=== PATIENT | female | born 1940 | race Caucasian/White ===

== ENCOUNTER 2018-04-05 17:28 | Inpatient (IN) ==
[2018-04-05 19:10] LABS: Basophils % 0.2 % (0.0-0.8); Hematocrit 40.1 VOL% (35.7-47.0); Hemoglobin 13.4 GM/DL (12.0-16.0); Immature Granulocytes % 0.2 %; Immature Granulocytes Absolute 0.01 #; Lymphocytes # 0.6 10*3/uL (1.4-4.0); Lymphocytes % 13.2 % (21.3-54.2); Mean Corpuscular HGB Conc 33.4 GM/DL (32-36); Mean Corpuscular Hemoglobin 33 PG (27-34); Mean Platelet Volume 12.4 FL (9.6-12.0); Monocytes % 20.8 % (1.7-12.7); Neutrophils % 65.6 % (38.7-73.9); Red Blood Count 4.09 MC/CUMM (3.8-5.5); Red Cell Distribution Width 13.5 % (9.3-17.3); White Blood Count 4.6 T/CUMM (4-12)
[2018-04-05 19:14] LABS: Platelet Count 92 T/CUMM (130-400)
[2018-04-05 19:35] LABS: Calcium 8.4 MG/DL (8.5-10.1); Osmolality,Calculated 279.5 MOS/KG (273-304); Potassium 3.6 MMOL/L (3.5-5.1)
[2018-04-05 19:58] LABS: Band Neutrophils 12 % (0-10); Lymphocytes 6 % (20-55); Platelet Estimate Decreased; Segmented Neutrophils 68 % (50-85); Total Cells Counted 100
[2018-04-05 20:14] LABS: CKMB % 0.7 %
[2018-04-05] MEDS ORDERED: diphenhydrAMINE 50 MG/1 ML VIAL IV STA (20:59)
[2018-04-05] MEDS ORDERED: SODIUM CHLORIDE 0.9% 1,000 ML IV STA (21:07)
[2018-04-05] MEDS ORDERED: diphenhydrAMINE 50 MG/1 ML VIAL ONE (21:09)
[2018-04-06] MEDS ORDERED: MORPHINE 4 MG/1 ML VIAL IV PRN (00:22)
[2018-04-06] MEDS: SODIUM CHLORIDE 0.9% 1,000 ML IV SCH ×5 (00:39→17:30)
[2018-04-06] MEDS: PANTOPRAZOLE 40 MG TABLET PO SCH (08:38)
[2018-04-06 09:03] LABS: Calcium 7.1 MG/DL (8.5-10.1); Potassium 3.6 MMOL/L (3.5-5.1)
[2018-04-06 09:17] LABS: CKMB % 0.3 %
[2018-04-06 13:47] LABS: Apearance,Urine CLOUDY (Clear); Bacteria,Urine Few /HPF (Few); Bilirubin,Urine Negative (Negative); Blood, Urine Negative (Negative); Glucose,Urine (UA) Negative (Negative); Ketones,Urine Negative (Negative); Mucus,Urine Occasional /LPF (Occasional); Nitrite,Urine Negative (Negative); Protein,Urine 30 MG/DL; RBC,Urine 5 /HPF (0-4); Squamous Epithelial Cell,Urine Occasional /HPF (0-10); Urine Color Yellow (Yellow); Urine Specific Gravity 1.029 (1.001-1.035); Urine Urobilinogen < 2.0 EU/DL (0.2-1.0); WBC,Urine 3 /HPF (0-6)
[2018-04-06] MEDS ORDERED: ENOXAPARIN 40 MG/0.4 ML SYRINGE SUBCUT SCH (15:00)
[2018-04-06] MEDS: ONDANSETRON 4 MG/2 ML VIAL IV PRN (16:33)
[2018-04-06] MEDS: ASPIRIN EC 81 MG TABLET PO SCH (18:40)
[2018-04-06] MEDS: ESCITALOPRAM 10 MG TABLET PO SCH (18:40)
[2018-04-06 19:01] LABS: CKMB % 0.3 %
[2018-04-06] MEDS: APIXABAN 5 MG TABLET PO SCH (21:33)
[2018-04-06] MEDS: ZALEPLON 5 MG CAPSULE PO SCH (21:33)
[2018-04-06] MEDS: CARVEDILOL 6.25 MG TABLET PO SCH (21:33)
[2018-04-06] MEDS: PREGABALIN 25 MG CAPSULE PO SCH (22:03)
[2018-04-07] MEDS: SODIUM CHLORIDE 0.9% 1,000 ML IV SCH ×3 (01:20→20:07)
[2018-04-07 02:30] LABS: Basophils % 0.4 % (0.0-0.8); Hematocrit 33.5 VOL% (35.7-47.0); Hemoglobin 11.1 GM/DL (12.0-16.0); Immature Granulocytes % 0.4 %; Immature Granulocytes Absolute 0.01 #; Lymphocytes # 0.4 10*3/uL (1.4-4.0); Lymphocytes % 15.3 % (21.3-54.2); Mean Corpuscular HGB Conc 33.1 GM/DL (32-36); Mean Corpuscular Hemoglobin 33 PG (27-34); Mean Corpuscular Volume 98.8 FL (87-102); Mean Platelet Volume 13.2 FL (9.6-12.0); Monocytes # 0.6 10*3/uL (0.11-0.8); Neutrophils # 1.8 10*3/uL (1.4-7.4); Neutrophils % 63.9 % (38.7-73.9); Platelet Count 74 T/CUMM (130-400); Red Blood Count 3.39 MC/CUMM (3.8-5.5); Red Cell Distribution Width 13.6 % (9.3-17.3); White Blood Count 2.8 T/CUMM (4-12)
[2018-04-07 02:53] LABS: Albumin 2.7 G/DL (3.4-5.0); Bilirubin,Total 0.5 MG/DL (0.2-1.0); Osmolality,Calculated 282.1 MOS/KG (273-304); Potassium 3.5 MMOL/L (3.5-5.1)
[2018-04-07 03:05] LABS: CKMB % 0.2 %
[2018-04-07 03:47] LABS: Band Neutrophils 38 % (0-10); Lymphocytes 12 % (20-55); Segmented Neutrophils 35 % (50-85); Total Cells Counted 100
[2018-04-07] MEDS: PREGABALIN 25 MG CAPSULE PO SCH ×2 (09:32→20:26)
[2018-04-07] MEDS: VALSARTAN 80 MG TABLET PO SCH (09:32)
[2018-04-07] MEDS: APIXABAN 5 MG TABLET PO SCH (09:32)
[2018-04-07] MEDS: CARVEDILOL 6.25 MG TABLET PO SCH ×2 (09:32→20:26)
[2018-04-07] MEDS: PANTOPRAZOLE 40 MG TABLET PO SCH (09:35)
[2018-04-07] MEDS: ONDANSETRON 4 MG/2 ML VIAL IV PRN (10:10)
[2018-04-07] MEDS: HYDROmorphone 2 MG/1 ML VIAL IV PRN ×2 (13:58→20:25)
[2018-04-07] MEDS: ALBUTEROL/IPRATROPIUM 3 ML NEB RESP TX SCH ×2 (13:59→18:55)
[2018-04-07] MEDS: ASPIRIN EC 81 MG TABLET PO SCH (17:59)
[2018-04-07] MEDS: ESCITALOPRAM 10 MG TABLET PO SCH (17:59)
[2018-04-07] MEDS: METHOCARBAMOL 500 MG TABLET PO PRN (20:26)
[2018-04-07] MEDS: ZALEPLON 5 MG CAPSULE PO SCH (20:26)
[2018-04-08] MEDS: SODIUM CHLORIDE 0.9% 1,000 ML IV SCH ×3 (02:25→21:20)
[2018-04-08 04:54] LABS: Basophils % 0.4 % (0.0-0.8); Eosinophils % 0.4 % (0.00-10.9); Hematocrit 35.7 VOL% (35.7-47.0); Hemoglobin 11.4 GM/DL (12.0-16.0); Immature Granulocytes % 0.4 %; Immature Granulocytes Absolute 0.01 #; Lymphocytes # 0.3 10*3/uL (1.4-4.0); Mean Corpuscular HGB Conc 31.9 GM/DL (32-36); Mean Corpuscular Hemoglobin 32 PG (27-34); Mean Corpuscular Volume 99.4 FL (87-102); Mean Platelet Volume 12.4 FL (9.6-12.0); Monocytes # 0.5 10*3/uL (0.11-0.8); Monocytes % 17.5 % (1.7-12.7); Neutrophils # 1.9 10*3/uL (1.4-7.4); Neutrophils % 69.3 % (38.7-73.9); Red Blood Count 3.59 MC/CUMM (3.8-5.5); Red Cell Distribution Width 13.4 % (9.3-17.3); White Blood Count 2.7 T/CUMM (4-12)
[2018-04-08 05:05] LABS: Platelet Count 81 T/CUMM (130-400)
[2018-04-08 05:32] LABS: Alanine Aminotransferase 45 U/L (13-56); Albumin 2.7 G/DL (3.4-5.0); Alkaline Phosphatase 55 U/L (45-117); Aspartate Amino Transferase 102 U/L (0-37); Bilirubin,Total < 0.39 MG/DL (0.2-1.0); Blood Urea Nitrogen 8 MG/DL (7-18); Calcium 7.5 MG/DL (8.5-10.1); Glucose 89 MG/DL (74-106); Osmolality,Calculated 275.4 MOS/KG (273-304); Potassium 3.6 MMOL/L (3.5-5.1); Sodium 140 MMOL/L (136-145); Total Protein 4.9 G/DL (6.4-8.3)
[2018-04-08] MEDS: ONDANSETRON 4 MG/2 ML VIAL IV PRN ×2 (05:35→10:40)
[2018-04-08 05:38] LABS: Hypochromasia Slight; Platelet Estimate Decreased
[2018-04-08] MEDS: ALBUTEROL/IPRATROPIUM 3 ML NEB RESP TX SCH ×4 (07:15→19:36)
[2018-04-08] MEDS: VALSARTAN 80 MG TABLET PO SCH (09:17)
[2018-04-08] MEDS: METHOCARBAMOL 500 MG TABLET PO PRN (09:17)
[2018-04-08] MEDS: PREGABALIN 25 MG CAPSULE PO SCH ×2 (09:17→21:42)
[2018-04-08] MEDS: CARVEDILOL 6.25 MG TABLET PO SCH ×2 (09:18→21:42)
[2018-04-08] MEDS: PANTOPRAZOLE 40 MG TABLET PO SCH (09:19)
[2018-04-08] MEDS: HYDROmorphone 2 MG/1 ML VIAL IV PRN ×3 (10:40→17:49)
[2018-04-08] MEDS ORDERED: ENOXAPARIN 40 MG/0.4 ML SYRINGE SUBCUT SCH (17:30)
[2018-04-08] MEDS: ASPIRIN EC 81 MG TABLET PO SCH (20:11)
[2018-04-08] MEDS: ESCITALOPRAM 10 MG TABLET PO SCH (20:11)
[2018-04-08] MEDS: ZALEPLON 5 MG CAPSULE PO SCH (21:42)
[2018-04-09] MEDS: ALBUTEROL/IPRATROPIUM 3 ML NEB RESP TX SCH ×4 (00:28→19:39)
[2018-04-09] MEDS: ONDANSETRON 4 MG/2 ML VIAL IV PRN ×4 (03:00→22:45)
[2018-04-09 05:20] LABS: Eosinophils % 0.4 % (0.00-10.9); Hematocrit 34.4 VOL% (35.7-47.0); Hemoglobin 11.6 GM/DL (12.0-16.0); Immature Granulocytes % 0.4 %; Immature Granulocytes Absolute 0.01 #; Lymphocytes # 0.4 10*3/uL (1.4-4.0); Lymphocytes % 14.2 % (21.3-54.2); Mean Corpuscular HGB Conc 33.7 GM/DL (32-36); Mean Corpuscular Hemoglobin 33 PG (27-34); Mean Corpuscular Volume 96.6 FL (87-102); Mean Platelet Volume 12.8 FL (9.6-12.0); Monocytes # 0.5 10*3/uL (0.11-0.8); Monocytes % 19.2 % (1.7-12.7); Neutrophils # 1.7 10*3/uL (1.4-7.4); Neutrophils % 65.8 % (38.7-73.9); Platelet Count 87 T/CUMM (130-400); Red Blood Count 3.56 MC/CUMM (3.8-5.5); Red Cell Distribution Width 13.2 % (9.3-17.3); White Blood Count 2.6 T/CUMM (4-12)
[2018-04-09 05:39] LABS: Calcium 7.7 MG/DL (8.5-10.1); Osmolality,Calculated 274.5 MOS/KG (273-304); Potassium 3.6 MMOL/L (3.5-5.1)
[2018-04-09 06:22] LABS: Band Neutrophils 8 % (0-10); Eosinophils 1 % (0-10); Lymphocytes 20 % (20-55); Nucleated Red Blood Cells 1 (0-5); Segmented Neutrophils 53 % (50-85); Total Cells Counted 100
[2018-04-09 06:23] LABS: Hypochromasia Slight; Platelet Estimate Decreased
[2018-04-09] MEDS: CARVEDILOL 6.25 MG TABLET PO SCH ×2 (08:45→21:10)
[2018-04-09] MEDS: PANTOPRAZOLE 40 MG TABLET PO SCH (08:45)
[2018-04-09] MEDS: VALSARTAN 80 MG TABLET PO SCH (08:45)
[2018-04-09] MEDS ORDERED: LORazepam 2 MG/1 ML VIAL IV ONE (09:18)
[2018-04-09] MEDS: PREGABALIN 25 MG CAPSULE PO SCH ×2 (10:01→21:10)
[2018-04-09] MEDS: SODIUM CHLORIDE 0.9% 1,000 ML IV SCH ×2 (12:13→20:00)
[2018-04-09] MEDS: METHOCARBAMOL 500 MG TABLET PO PRN (19:54)
[2018-04-09] MEDS: ESCITALOPRAM 10 MG TABLET PO SCH (21:09)
[2018-04-09] MEDS: ASPIRIN EC 81 MG TABLET PO SCH (21:10)
[2018-04-09] MEDS: ZALEPLON 5 MG CAPSULE PO SCH (21:10)
[2018-04-09] MEDS: oxyCODONE/ACETAMINOPHEN 5-325 MG TABLET PO PRN (22:43)
[2018-04-10] MEDS: ALBUTEROL/IPRATROPIUM 3 ML NEB RESP TX SCH ×4 (00:59→20:00)
[2018-04-10] MEDS: oxyCODONE/ACETAMINOPHEN 5-325 MG TABLET PO PRN (02:42)
[2018-04-10 03:22] LABS: Basophils % 0.2 % (0.0-0.8); Eosinophils % 0.9 % (0.00-10.9); Hematocrit 38.1 VOL% (35.7-47.0); Hemoglobin 12.4 GM/DL (12.0-16.0); Immature Granulocytes % 0.2 %; Immature Granulocytes Absolute 0.01 #; Lymphocytes # 0.8 10*3/uL (1.4-4.0); Lymphocytes % 17.9 % (21.3-54.2); Mean Corpuscular HGB Conc 32.5 GM/DL (32-36); Mean Corpuscular Hemoglobin 32 PG (27-34); Mean Corpuscular Volume 97.2 FL (87-102); Mean Platelet Volume 12.3 FL (9.6-12.0); Monocytes # 0.7 10*3/uL (0.11-0.8); Monocytes % 15.3 % (1.7-12.7); Neutrophils # 2.8 10*3/uL (1.4-7.4); Neutrophils % 65.5 % (38.7-73.9); Platelet Count 107 T/CUMM (130-400); Red Blood Count 3.92 MC/CUMM (3.8-5.5); Red Cell Distribution Width 13.3 % (9.3-17.3); White Blood Count 4.3 T/CUMM (4-12)
[2018-04-10 03:47] LABS: Osmolality,Calculated 281.1 MOS/KG (273-304); Potassium 3.5 MMOL/L (3.5-5.1)
[2018-04-10] MEDS: SODIUM CHLORIDE 0.9% 1,000 ML IV SCH ×2 (04:01→12:19)
[2018-04-10] MEDS ORDERED: DILTIAZEM 100 MG VIAL.ADD IV ONE (04:03)
[2018-04-10 04:05] LABS: Lymphocytes 15 % (20-55); Segmented Neutrophils 75 % (50-85); Total Cells Counted 100
[2018-04-10 04:06] LABS: Platelet Estimate Adequate
[2018-04-10] MEDS: DILTIAZEM INJ 100 MG in SODIUM CHLORIDE 0.9% 100 ML IV SCH (04:17)
[2018-04-10] MEDS ORDERED: DILTIAZEM 50 MG/10 ML VIAL IV ONE (04:30)
[2018-04-10] MEDS: VALSARTAN 80 MG TABLET PO SCH (08:37)
[2018-04-10] MEDS: CARVEDILOL 6.25 MG TABLET PO SCH ×2 (08:37→20:18)
[2018-04-10] MEDS: PANTOPRAZOLE 40 MG TABLET PO SCH (08:39)
[2018-04-10] MEDS: METHOCARBAMOL 500 MG TABLET PO PRN ×2 (08:49→22:13)
[2018-04-10] MEDS: PREGABALIN 25 MG CAPSULE PO SCH ×2 (08:50→20:17)
[2018-04-10] MEDS: ASCORBIC ACID 500 MG TABLET PO SCH ×2 (08:50→20:18)
[2018-04-10] MEDS: FAMOTIDINE 20 MG TABLET PO SCH (10:02)
[2018-04-10] MEDS ORDERED: FUROSEMIDE 40 MG/4 ML VIAL IV ONE (11:19)
[2018-04-10] MEDS: DILTIAZEM CD 180 MG CAPSULE PO SCH (12:10)
[2018-04-10] MEDS: DABIGATRAN 150 MG CAPSULE PO SCH ×2 (12:21→20:18)
[2018-04-10] MEDS: ALUMINUM/MAGNES/SIMETH MAX STR 30 ML UDCUP PO PRN (12:55)
[2018-04-10] MEDS: traMADol 50 MG TABLET PO PRN ×2 (14:56→19:24)
[2018-04-10] MEDS ORDERED: hydrALAZINE 20 MG/1 ML VIAL IV PRN (17:46)
[2018-04-10] MEDS: ASPIRIN EC 81 MG TABLET PO SCH (20:18)
[2018-04-10] MEDS: DOCUSATE SODIUM 100 MG CAPSULE PO SCH (20:18)
[2018-04-10] MEDS: ESCITALOPRAM 10 MG TABLET PO SCH (20:18)
[2018-04-10] MEDS: ZALEPLON 5 MG CAPSULE PO SCH (20:23)
[2018-04-11] MEDS ORDERED: oxyCODONE/ACETAMINOPHEN 5-325 MG TABLET PO ONE (00:30)
[2018-04-11] MEDS: ALBUTEROL/IPRATROPIUM 3 ML NEB RESP TX SCH ×4 (00:40→19:04)
[2018-04-11 05:51] LABS: Basophils % 0.2 % (0.0-0.8); Eosinophils % 0.8 % (0.00-10.9); Hematocrit 35.1 VOL% (35.7-47.0); Hemoglobin 11.9 GM/DL (12.0-16.0); Immature Granulocytes % 0.6 %; Immature Granulocytes Absolute 0.03 #; Lymphocytes # 0.6 10*3/uL (1.4-4.0); Lymphocytes % 12.7 % (21.3-54.2); Mean Corpuscular HGB Conc 33.9 GM/DL (32-36); Mean Corpuscular Hemoglobin 32 PG (27-34); Mean Corpuscular Volume 94.6 FL (87-102); Mean Platelet Volume 12.5 FL (9.6-12.0); Monocytes % 19.7 % (1.7-12.7); Neutrophils # 3.2 10*3/uL (1.4-7.4); Platelet Count 131 T/CUMM (130-400); Red Blood Count 3.71 MC/CUMM (3.8-5.5); Red Cell Distribution Width 13.2 % (9.3-17.3); White Blood Count 4.9 T/CUMM (4-12)
[2018-04-11] MEDS: DILTIAZEM INJ 100 MG in SODIUM CHLORIDE 0.9% 100 ML IV SCH (06:18)
[2018-04-11 06:23] LABS: Calcium 8.1 MG/DL (8.5-10.1); Osmolality,Calculated 276.4 MOS/KG (273-304); Potassium 3.3 MMOL/L (3.5-5.1)
[2018-04-11 06:26] LABS: Band Neutrophils 2 % (0-10); Eosinophils 1 % (0-10); Hypochromasia Slight; Lymphocytes 12 % (20-55); Segmented Neutrophils 65 % (50-85); Total Cells Counted 100
[2018-04-11 06:27] LABS: Platelet Estimate Adequate
[2018-04-11] MEDS: DABIGATRAN 150 MG CAPSULE PO SCH ×2 (08:51→21:09)
[2018-04-11] MEDS: CARVEDILOL 6.25 MG TABLET PO SCH ×2 (08:51→21:10)
[2018-04-11] MEDS: traMADol 50 MG TABLET PO PRN ×3 (08:51→18:49)
[2018-04-11] MEDS: ASCORBIC ACID 500 MG TABLET PO SCH ×2 (08:51→21:09)
[2018-04-11] MEDS: FAMOTIDINE 20 MG TABLET PO SCH (08:51)
[2018-04-11] MEDS: DOCUSATE SODIUM 100 MG CAPSULE PO SCH ×2 (08:51→21:09)
[2018-04-11] MEDS: VALSARTAN 80 MG TABLET PO SCH (08:51)
[2018-04-11] MEDS: PANTOPRAZOLE 40 MG TABLET PO SCH (09:01)
[2018-04-11] MEDS: PREGABALIN 25 MG CAPSULE PO SCH ×2 (09:01→21:10)
[2018-04-11] MEDS: DILTIAZEM CD 180 MG CAPSULE PO SCH ×2 (10:17→13:54)
[2018-04-11] MEDS: POTASSIUM CHLORIDE 20 MEQ TABLET PO PRN ×2 (13:55→18:04)
[2018-04-11] MEDS ORDERED: cloNIDine 0.1 MG TABLET PO PRN (16:57)
[2018-04-11] MEDS: METHOCARBAMOL 500 MG TABLET PO PRN (18:49)
[2018-04-11] MEDS: ZALEPLON 5 MG CAPSULE PO SCH (21:09)
[2018-04-11] MEDS: ESCITALOPRAM 10 MG TABLET PO SCH (21:10)
[2018-04-11] MEDS: ASPIRIN EC 81 MG TABLET PO SCH (21:10)
[2018-04-12] MEDS: ALBUTEROL/IPRATROPIUM 3 ML NEB RESP TX SCH ×4 (01:10→20:45)
[2018-04-12] MEDS: traMADol 50 MG TABLET PO PRN ×3 (03:32→20:33)
[2018-04-12] MEDS: METHOCARBAMOL 500 MG TABLET PO PRN ×2 (03:32→16:35)
[2018-04-12] MEDS: DILTIAZEM INJ 100 MG in SODIUM CHLORIDE 0.9% 100 ML IV SCH (03:40)
[2018-04-12] MEDS: ONDANSETRON 4 MG/2 ML VIAL IV PRN (05:44)
[2018-04-12 05:52] LABS: Basophils % 0.3 % (0.0-0.8); Eosinophils # 0.1 10*3/uL (0.0-0.87); Eosinophils % 0.7 % (0.00-10.9); Hematocrit 36.5 VOL% (35.7-47.0); Hemoglobin 12.2 GM/DL (12.0-16.0); Immature Granulocytes % 0.7 %; Immature Granulocytes Absolute 0.05 #; Lymphocytes # 0.7 10*3/uL (1.4-4.0); Lymphocytes % 9.1 % (21.3-54.2); Mean Corpuscular HGB Conc 33.4 GM/DL (32-36); Mean Corpuscular Hemoglobin 32 PG (27-34); Mean Corpuscular Volume 95.3 FL (87-102); Mean Platelet Volume 11.8 FL (9.6-12.0); Monocytes # 1.2 10*3/uL (0.11-0.8); Monocytes % 16.1 % (1.7-12.7); Neutrophils # 5.6 10*3/uL (1.4-7.4); Neutrophils % 73.1 % (38.7-73.9); Platelet Count 174 T/CUMM (130-400); Red Blood Count 3.83 MC/CUMM (3.8-5.5); Red Cell Distribution Width 13.1 % (9.3-17.3); White Blood Count 7.7 T/CUMM (4-12)
[2018-04-12 06:31] LABS: Osmolality,Calculated 272.7 MOS/KG (273-304); Potassium 3.8 MMOL/L (3.5-5.1)
[2018-04-12 07:22] LABS: Band Neutrophils 3 % (0-10); Lymphocytes 12 % (20-55); Segmented Neutrophils 76 % (50-85); Total Cells Counted 100
[2018-04-12 07:23] LABS: Hypochromasia 1+; Platelet Estimate Adequate; Target Cells Slight
[2018-04-12] MEDS: BISACODYL 10 MG SUPP RECTAL PRN (08:52)
[2018-04-12] MEDS: DABIGATRAN 150 MG CAPSULE PO SCH (08:57)
[2018-04-12] MEDS: DILTIAZEM CD 180 MG CAPSULE PO SCH (08:57)
[2018-04-12] MEDS: FAMOTIDINE 20 MG TABLET PO SCH (08:58)
[2018-04-12] MEDS: DOCUSATE SODIUM 100 MG CAPSULE PO SCH ×2 (08:58→20:34)
[2018-04-12] MEDS: CARVEDILOL 6.25 MG TABLET PO SCH ×2 (08:58→20:36)
[2018-04-12] MEDS: ASCORBIC ACID 500 MG TABLET PO SCH ×2 (08:58→20:34)
[2018-04-12] MEDS: PREGABALIN 25 MG CAPSULE PO SCH ×2 (08:58→20:34)
[2018-04-12] MEDS: VALSARTAN 160 MG TABLET PO SCH (08:58)
[2018-04-12] MEDS: PANTOPRAZOLE 40 MG TABLET PO SCH (09:02)
[2018-04-12] MEDS ORDERED: ALBUTEROL/IPRATROPIUM 3 ML NEB RESP TX ONE (10:58)
[2018-04-12 11:08] LABS: Apearance,Urine CLOUDY (Clear); Bacteria,Urine Many /HPF (Few); Bilirubin,Urine Negative (Negative); Blood, Urine Large mg/dL (Negative); Glucose,Urine (UA) Negative (Negative); Ketones,Urine Negative (Negative); Mucus,Urine Occasional /LPF (Occasional); Nitrite,Urine Negative (Negative); Protein,Urine 100 MG/DL; RBC,Urine 7831 /HPF (0-4); Urine Color Amber (Yellow); Urine Specific Gravity 1.015 (1.001-1.035); WBC,Urine 694 /HPF (0-6)
[2018-04-12] MEDS: ESCITALOPRAM 10 MG TABLET PO SCH (18:20)
[2018-04-12] MEDS: ASPIRIN EC 81 MG TABLET PO SCH (18:20)
[2018-04-12] MEDS: ZALEPLON 5 MG CAPSULE PO SCH (20:34)
[2018-04-13] MEDS: ALBUTEROL/IPRATROPIUM 3 ML NEB RESP TX SCH ×4 (01:04→19:53)
[2018-04-13] MEDS: METHOCARBAMOL 500 MG TABLET PO PRN ×3 (03:27→20:37)
[2018-04-13 03:31] LABS: Basophils % 0.2 % (0.0-0.8); Eosinophils # 0.1 10*3/uL (0.0-0.87); Eosinophils % 1.2 % (0.00-10.9); Hematocrit 34.9 VOL% (35.7-47.0); Hemoglobin 11.6 GM/DL (12.0-16.0); Immature Granulocytes % 0.9 %; Immature Granulocytes Absolute 0.07 #; Lymphocytes # 0.8 10*3/uL (1.4-4.0); Lymphocytes % 10.1 % (21.3-54.2); Mean Corpuscular HGB Conc 33.2 GM/DL (32-36); Mean Corpuscular Hemoglobin 32 PG (27-34); Mean Corpuscular Volume 95.1 FL (87-102); Mean Platelet Volume 12.1 FL (9.6-12.0); Monocytes # 1.4 10*3/uL (0.11-0.8); Monocytes % 17.1 % (1.7-12.7); Neutrophils # 5.8 10*3/uL (1.4-7.4); Neutrophils % 70.5 % (38.7-73.9); Platelet Count 200 T/CUMM (130-400); Red Blood Count 3.67 MC/CUMM (3.8-5.5); Red Cell Distribution Width 13.2 % (9.3-17.3); White Blood Count 8.2 T/CUMM (4-12)
[2018-04-13 03:52] LABS: Calcium 8.4 MG/DL (8.5-10.1); Osmolality,Calculated 272.7 MOS/KG (273-304); Potassium 3.4 MMOL/L (3.5-5.1)
[2018-04-13 04:00] LABS: Lymphocytes 6 % (20-55); Segmented Neutrophils 84 % (50-85)
[2018-04-13 04:23] LABS: Platelet Estimate Normal; Total Cells Counted 100
[2018-04-13] MEDS: traMADol 50 MG TABLET PO PRN ×3 (06:10→22:49)
[2018-04-13] MEDS: FAMOTIDINE 20 MG TABLET PO SCH (08:45)
[2018-04-13] MEDS: VALSARTAN 160 MG TABLET PO SCH (08:45)
[2018-04-13] MEDS: PREGABALIN 25 MG CAPSULE PO SCH ×2 (08:45→20:37)
[2018-04-13] MEDS: ASCORBIC ACID 500 MG TABLET PO SCH ×2 (08:45→20:37)
[2018-04-13] MEDS: POTASSIUM CHLORIDE 20 MEQ TABLET PO PRN ×4 (08:45→22:48)
[2018-04-13] MEDS: DOCUSATE SODIUM 100 MG CAPSULE PO SCH ×2 (08:45→20:37)
[2018-04-13] MEDS: DILTIAZEM CD 180 MG CAPSULE PO SCH (08:45)
[2018-04-13] MEDS: PANTOPRAZOLE 40 MG TABLET PO SCH (08:45)
[2018-04-13] MEDS: CARVEDILOL 6.25 MG TABLET PO SCH ×2 (08:46→20:45)
[2018-04-13] MEDS: NITROFURANTOIN MACRO/MONO 100 MG CAPSULE PO SCH ×2 (11:44→20:45)
[2018-04-13] MEDS: ALUMINUM/MAGNES/SIMETH MAX STR 30 ML UDCUP PO PRN ×2 (14:02→14:06)
[2018-04-13] MEDS: DEXTROSE 5% NACL 0.45% 1,000 ML IV SCH (14:03)
[2018-04-13] MEDS: ASPIRIN EC 81 MG TABLET PO SCH (18:03)
[2018-04-13] MEDS: ESCITALOPRAM 10 MG TABLET PO SCH (18:03)
[2018-04-13] MEDS: ZALEPLON 5 MG CAPSULE PO PRN (20:13)
[2018-04-13] MEDS ORDERED: ZALEPLON 5 MG CAPSULE PO PRN (21:00)
[2018-04-14] MEDS: ALBUTEROL/IPRATROPIUM 3 ML NEB RESP TX SCH ×4 (00:50→19:50)
[2018-04-14] MEDS: DEXTROSE 5% NACL 0.45% 1,000 ML IV SCH (03:30)
[2018-04-14] MEDS: METHOCARBAMOL 500 MG TABLET PO PRN ×2 (06:08→13:49)
[2018-04-14] MEDS: traMADol 50 MG TABLET PO PRN (07:12)
[2018-04-14] MEDS: DILTIAZEM CD 180 MG CAPSULE PO SCH (08:33)
[2018-04-14] MEDS: VALSARTAN 160 MG TABLET PO SCH (08:33)
[2018-04-14] MEDS: NITROFURANTOIN MACRO/MONO 100 MG CAPSULE PO SCH ×2 (08:33→20:54)
[2018-04-14] MEDS: ASCORBIC ACID 500 MG TABLET PO SCH ×2 (08:34→20:49)
[2018-04-14] MEDS: PANTOPRAZOLE 40 MG TABLET PO SCH (08:34)
[2018-04-14] MEDS: FAMOTIDINE 20 MG TABLET PO SCH (08:34)
[2018-04-14] MEDS: CARVEDILOL 6.25 MG TABLET PO SCH ×2 (08:34→20:49)
[2018-04-14] MEDS: DOCUSATE SODIUM 100 MG CAPSULE PO SCH ×2 (08:34→20:49)
[2018-04-14] MEDS ORDERED: cefTRIAXone 1,000 MG in SYRINGE 1 EACH IV SCH (09:00)
[2018-04-14] MEDS: KETOROLAC 15 MG/1 ML VIAL IV PRN ×2 (10:07→20:50)
[2018-04-14] MEDS: BENZONATATE 100 MG CAPSULE PO PRN (16:20)
[2018-04-14] MEDS: ASPIRIN EC 81 MG TABLET PO SCH (18:07)
[2018-04-14] MEDS: ESCITALOPRAM 10 MG TABLET PO SCH (18:07)
[2018-04-14] MEDS: ZALEPLON 5 MG CAPSULE PO PRN (20:48)
[2018-04-15] MEDS: METHOCARBAMOL 500 MG TABLET PO PRN ×3 (00:11→20:59)
[2018-04-15] MEDS: KETOROLAC 15 MG/1 ML VIAL IV PRN ×4 (02:21→22:00)
[2018-04-15] MEDS: ALBUTEROL/IPRATROPIUM 3 ML NEB RESP TX SCH ×4 (02:44→19:27)
[2018-04-15 05:54] LABS: Calcium 8.4 MG/DL (8.5-10.1); Osmolality,Calculated 274.5 MOS/KG (273-304); Potassium 3.6 MMOL/L (3.5-5.1)
[2018-04-15] MEDS: traMADol 50 MG TABLET PO PRN ×2 (06:16→16:44)
[2018-04-15] MEDS: ONDANSETRON 4 MG/2 ML VIAL IV PRN (06:16)
[2018-04-15] MEDS: BENZONATATE 100 MG CAPSULE PO PRN ×2 (06:16→19:27)
[2018-04-15] MEDS: VALSARTAN 160 MG TABLET PO SCH (09:23)
[2018-04-15] MEDS: DILTIAZEM CD 180 MG CAPSULE PO SCH (09:23)
[2018-04-15] MEDS: FAMOTIDINE 20 MG TABLET PO SCH (09:23)
[2018-04-15] MEDS: PANTOPRAZOLE 40 MG TABLET PO SCH (09:24)
[2018-04-15] MEDS: DOCUSATE SODIUM 100 MG CAPSULE PO SCH ×2 (09:24→20:58)
[2018-04-15] MEDS: NITROFURANTOIN MACRO/MONO 100 MG CAPSULE PO SCH ×2 (09:24→20:58)
[2018-04-15] MEDS: CARVEDILOL 6.25 MG TABLET PO SCH ×2 (09:24→20:58)
[2018-04-15] MEDS: ASCORBIC ACID 500 MG TABLET PO SCH ×2 (09:24→20:58)
[2018-04-15] MEDS: BECLOMETHASONE 80 MCG/PUFF INHALER 8.7 GM INH SCH ×2 (09:28→20:59)
[2018-04-15] MEDS: guaiFENesin/CODEINE 5 ML LIQUID PO PRN ×3 (09:38→22:00)
[2018-04-15] MEDS: ESCITALOPRAM 10 MG TABLET PO SCH (17:59)
[2018-04-15] MEDS: ASPIRIN EC 81 MG TABLET PO SCH (17:59)
[2018-04-15] MEDS: LUNESTA PO SCH (21:59)
[2018-04-16] MEDS: traMADol 50 MG TABLET PO PRN ×2 (00:34→14:22)
[2018-04-16] MEDS: ALBUTEROL/IPRATROPIUM 3 ML NEB RESP TX SCH ×4 (00:38→18:59)
[2018-04-16] MEDS: KETOROLAC 15 MG/1 ML VIAL IV PRN ×2 (04:11→22:27)
[2018-04-16 06:55] LABS: Basophils % 0.5 % (0.0-0.8); Eosinophils # 0.2 10*3/uL (0.0-0.87); Eosinophils % 2.6 % (0.00-10.9); Hematocrit 36.3 VOL% (35.7-47.0); Hemoglobin 11.5 GM/DL (12.0-16.0); Immature Granulocytes % 0.8 %; Immature Granulocytes Absolute 0.07 #; Lymphocytes % 11.8 % (21.3-54.2); Mean Corpuscular HGB Conc 31.7 GM/DL (32-36); Mean Corpuscular Hemoglobin 31 PG (27-34); Mean Corpuscular Volume 96.8 FL (87-102); Mean Platelet Volume 11.5 FL (9.6-12.0); Monocytes # 1.4 10*3/uL (0.11-0.8); Monocytes % 16.7 % (1.7-12.7); Neutrophils # 5.6 10*3/uL (1.4-7.4); Neutrophils % 67.6 % (38.7-73.9); Platelet Count 311 T/CUMM (130-400); Red Blood Count 3.75 MC/CUMM (3.8-5.5); Red Cell Distribution Width 13.2 % (9.3-17.3); White Blood Count 8.3 T/CUMM (4-12)
[2018-04-16 07:23] LABS: Band Neutrophils 1 % (0-10); Eosinophils 4 % (0-10); Lymphocytes 10 % (20-55); Metamyelocytes 1 %; Segmented Neutrophils 72 % (50-85); Total Cells Counted 100
[2018-04-16 07:24] LABS: Platelet Estimate Normal
[2018-04-16 07:25] LABS: Calcium 8.6 MG/DL (8.5-10.1); Osmolality,Calculated 276.4 MOS/KG (273-304); Potassium 3.7 MMOL/L (3.5-5.1)
[2018-04-16] MEDS: ONDANSETRON 4 MG/2 ML VIAL IV PRN (08:14)
[2018-04-16] MEDS ORDERED: BETAMETH SODIUM PHOS/ACETATE 30 MG/5 ML VIAL ONE (10:02)
[2018-04-16] MEDS ORDERED: LIDOCAINE 1% 50 ML VIAL ONE (10:03)
[2018-04-16] MEDS ORDERED: PROPOFOL 200 MG/20 ML VIAL IV ONE (11:41)
[2018-04-16] MEDS ORDERED: MIDAZOLAM 2 MG/2 ML VIAL ONE (11:42)
[2018-04-16] MEDS ORDERED: fentaNYL 100 MCG/2 ML VIAL ONE (11:42)
[2018-04-16] MEDS: FAMOTIDINE 20 MG TABLET PO SCH (14:21)
[2018-04-16] MEDS: VALSARTAN 160 MG TABLET PO SCH (14:21)
[2018-04-16] MEDS: CARVEDILOL 6.25 MG TABLET PO SCH ×2 (14:22→21:30)
[2018-04-16] MEDS: DOCUSATE SODIUM 100 MG CAPSULE PO SCH ×2 (14:22→21:31)
[2018-04-16] MEDS: DILTIAZEM CD 180 MG CAPSULE PO SCH (14:22)
[2018-04-16] MEDS: PANTOPRAZOLE 40 MG TABLET PO SCH (14:22)
[2018-04-16] MEDS: ASCORBIC ACID 500 MG TABLET PO SCH ×2 (14:22→21:31)
[2018-04-16] MEDS: BECLOMETHASONE 80 MCG/PUFF INHALER 8.7 GM INH SCH ×2 (14:30→21:29)
[2018-04-16] MEDS: NITROFURANTOIN MACRO/MONO 100 MG CAPSULE PO SCH ×2 (14:35→22:27)
[2018-04-16] MEDS: BENZONATATE 100 MG CAPSULE PO PRN ×2 (14:35→21:31)
[2018-04-16] MEDS: ESCITALOPRAM 10 MG TABLET PO SCH (21:30)
[2018-04-16] MEDS: ASPIRIN EC 81 MG TABLET PO SCH (21:31)
[2018-04-16] MEDS: PREGABALIN 25 MG CAPSULE PO SCH (22:27)
[2018-04-17] MEDS: ALBUTEROL/IPRATROPIUM 3 ML NEB RESP TX SCH ×4 (00:40→19:22)
[2018-04-17] MEDS: LUNESTA PO SCH ×2 (01:00→21:55)
[2018-04-17] MEDS: ACETAMINOPHEN 325 MG TABLET PO PRN (03:06)
[2018-04-17] MEDS: METHOCARBAMOL 500 MG TABLET PO PRN (04:50)
[2018-04-17] MEDS: KETOROLAC 15 MG/1 ML VIAL IV PRN ×3 (06:00→23:45)
[2018-04-17] MEDS: BENZONATATE 100 MG CAPSULE PO PRN (09:39)
[2018-04-17] MEDS: DOCUSATE SODIUM 100 MG CAPSULE PO SCH ×2 (09:41→20:59)
[2018-04-17] MEDS: FAMOTIDINE 20 MG TABLET PO SCH (09:41)
[2018-04-17] MEDS: DILTIAZEM CD 180 MG CAPSULE PO SCH (09:41)
[2018-04-17] MEDS: PANTOPRAZOLE 40 MG TABLET PO SCH (09:41)
[2018-04-17] MEDS: ASCORBIC ACID 500 MG TABLET PO SCH ×2 (09:42→20:59)
[2018-04-17] MEDS: VALSARTAN 160 MG TABLET PO SCH (09:42)
[2018-04-17] MEDS: PREGABALIN 25 MG CAPSULE PO SCH ×2 (09:43→20:59)
[2018-04-17] MEDS: CARVEDILOL 6.25 MG TABLET PO SCH ×2 (09:43→21:00)
[2018-04-17] MEDS: BECLOMETHASONE 80 MCG/PUFF INHALER 8.7 GM INH SCH ×2 (09:44→20:59)
[2018-04-17] MEDS: NITROFURANTOIN MACRO/MONO 100 MG CAPSULE PO SCH ×2 (09:45→21:00)
[2018-04-17] MEDS: traMADol 50 MG TABLET PO PRN (11:37)
[2018-04-17] MEDS: guaiFENesin/CODEINE 5 ML LIQUID PO PRN (13:12)
[2018-04-17] MEDS: traMADol 50 MG TABLET PO SCH ×2 (16:50→21:00)
[2018-04-17] MEDS: ASPIRIN EC 81 MG TABLET PO SCH (21:00)
[2018-04-17] MEDS: ESCITALOPRAM 10 MG TABLET PO SCH (21:00)
[2018-04-18] MEDS: ALBUTEROL/IPRATROPIUM 3 ML NEB RESP TX SCH ×2 (00:16→07:00)
[2018-04-18] MEDS: ACETAMINOPHEN 325 MG TABLET PO PRN (02:44)
[2018-04-18] MEDS: METHOCARBAMOL 500 MG TABLET PO PRN (05:15)
[2018-04-18] MEDS: KETOROLAC 15 MG/1 ML VIAL IV PRN (07:23)
[2018-04-18] MEDS: PREGABALIN 25 MG CAPSULE PO SCH (08:46)
[2018-04-18] MEDS: BENZONATATE 100 MG CAPSULE PO PRN (08:46)
[2018-04-18] MEDS: VALSARTAN 160 MG TABLET PO SCH (08:47)
[2018-04-18] MEDS: PANTOPRAZOLE 40 MG TABLET PO SCH (08:47)
[2018-04-18] MEDS: CARVEDILOL 6.25 MG TABLET PO SCH (08:47)
[2018-04-18] MEDS: traMADol 50 MG TABLET PO SCH ×2 (08:47→14:03)
[2018-04-18] MEDS: FAMOTIDINE 20 MG TABLET PO SCH (08:47)
[2018-04-18] MEDS: DOCUSATE SODIUM 100 MG CAPSULE PO SCH (08:47)
[2018-04-18] MEDS: ASCORBIC ACID 500 MG TABLET PO SCH (08:47)
[2018-04-18] MEDS: DILTIAZEM CD 180 MG CAPSULE PO SCH (08:47)
[2018-04-18] MEDS: BISACODYL 10 MG SUPP RECTAL PRN (08:48)
[2018-04-18] MEDS: NITROFURANTOIN MACRO/MONO 100 MG CAPSULE PO SCH (11:01)
[2018-04-18] MEDS: guaiFENesin/CODEINE 5 ML LIQUID PO PRN (11:01)
[2018-04-18] MEDS: BECLOMETHASONE 80 MCG/PUFF INHALER 8.7 GM INH SCH (11:01)
[2018-04-18 12:37] VITALS: BP 135/70
== END 2018-04-18 13:05 | disposition swing bed (61) | DRG 964 ==
LOC: EDUNIT# → EDBD → N.ED 17:28 → N.EDINP 21:08 → N.3E 23:24 → N.CC 04-10 03:58 → N.TELES 04-11 18:29
PROVIDERS: ADMIT Surgery; ATTEND Surgery

== ENCOUNTER 2018-11-14 19:07 | Inpatient (IN) ==
[2018-11-14] MEDS ORDERED: KETOROLAC 30 MG/1 ML VIAL IV STA (19:34)
[2018-11-14 19:46] LABS: Apearance,Urine Slightly Hazy (Clear); Bilirubin,Urine Negative (Negative); Blood, Urine Negative (Negative); Glucose,Urine (UA) Negative (Negative); Ketones,Urine Negative (Negative); Mucus,Urine Occasional /LPF (Occasional); Nitrite,Urine Negative (Negative); Protein,Urine Negative; RBC,Urine 1 /HPF (0-4); Squamous Epithelial Cell,Urine Occasional /HPF (0-10); Urine Color Yellow (Yellow); Urine Specific Gravity 1.018 (1.001-1.035); WBC,Urine 3 /HPF (0-6)
[2018-11-14 19:53] LABS: Basophils % 0.2 % (0.0-0.8); Eosinophils # 0.1 10*3/uL (0.0-0.87); Eosinophils % 1.3 % (0.00-10.9); Hematocrit 38.4 VOL% (35.7-47.0); Immature Granulocytes % 0.3 %; Immature Granulocytes Absolute 0.02 #; Lymphocytes # 0.8 10*3/uL (1.4-4.0); Lymphocytes % 13.3 % (21.3-54.2); Mean Corpuscular HGB Conc 31.3 GM/DL (32-36); Mean Corpuscular Hemoglobin 30 PG (27-34); Mean Platelet Volume 12.6 FL (9.6-12.0); Monocytes # 0.7 10*3/uL (0.11-0.8); Monocytes % 12.1 % (1.7-12.7); Neutrophils # 4.5 10*3/uL (1.4-7.4); Neutrophils % 72.8 % (38.7-73.9); Platelet Count 165 T/CUMM (130-400); Red Blood Count 3.96 MC/CUMM (3.8-5.5); Red Cell Distribution Width 13.3 % (9.3-17.3); White Blood Count 6.1 T/CUMM (4-12)
[2018-11-14 20:03] LABS: PT Patient Result 10.9 SECS
[2018-11-14 20:16] LABS: Albumin 3.2 G/DL (3.4-5.0); Bilirubin,Total 0.4 MG/DL (0.2-1.0); Calcium 9.2 MG/DL (8.5-10.1); Osmolality,Calculated 287.1 MOS/KG (273-304); Potassium 4.1 MMOL/L (3.5-5.1)
[2018-11-14] MEDS ORDERED: fentaNYL 100 MCG/2 ML VIAL IV STA ×2 (20:39→22:27)
[2018-11-14] MEDS ORDERED: ZALEPLON 5 MG CAPSULE PO PRN (22:37)
[2018-11-14] MEDS ORDERED: diphenhydrAMINE CAP 25 MG CAPSULE PO PRN (22:37)
[2018-11-14] MEDS ORDERED: NICOTINE 21 MG/24 HR PATCH TRANSDERM PRN (22:37)
[2018-11-14] MEDS ORDERED: ACETAMINOPHEN 325 MG TABLET PO PRN (22:37)
[2018-11-15] MEDS: MEPERIDINE 25 MG/1 ML VIAL IV PRN ×2 (02:52→06:44)
[2018-11-15 05:39] LABS: Basophils % 0.3 % (0.0-0.8); Eosinophils # 0.1 10*3/uL (0.0-0.87); Eosinophils % 1.4 % (0.00-10.9); Hematocrit 33.8 VOL% (35.7-47.0); Hemoglobin 10.8 GM/DL (12.0-16.0); Immature Granulocytes % 0.4 %; Immature Granulocytes Absolute 0.04 #; Lymphocytes # 0.8 10*3/uL (1.4-4.0); Lymphocytes % 8.3 % (21.3-54.2); Mean Corpuscular Hemoglobin 31 PG (27-34); Mean Corpuscular Volume 95.8 FL (87-102); Mean Platelet Volume 12.9 FL (9.6-12.0); Monocytes % 10.5 % (1.7-12.7); Neutrophils # 7.3 10*3/uL (1.4-7.4); Neutrophils % 79.1 % (38.7-73.9); Platelet Count 142 T/CUMM (130-400); Red Blood Count 3.53 MC/CUMM (3.8-5.5); Red Cell Distribution Width 13.3 % (9.3-17.3); White Blood Count 9.2 T/CUMM (4-12)
[2018-11-15] MEDS ORDERED: ceFAZolin 1,000 MG in SYRINGE 1 EACH IV ONE (07:37)
[2018-11-15] MEDS ORDERED: VANCOMYCIN INJ 1,000 MG in SODIUM CHLORIDE 0.9% 250 ML IV ONE (07:38)
[2018-11-15] MEDS: CARVEDILOL 6.25 MG TABLET PO SCH ×2 (08:19→20:40)
[2018-11-15] MEDS ORDERED: ONDANSETRON 4 MG/2 ML VIAL ONE ×3 (08:42→11:22)
[2018-11-15] MEDS ORDERED: FAMOTIDINE 20 MG/2 ML VIAL IV ONE ×2 (08:42→08:47)
[2018-11-15] MEDS: ONDANSETRON 4 MG/2 ML VIAL IV PRN ×2 (08:48→20:39)
[2018-11-15] MEDS ORDERED: ENOXAPARIN 40 MG/0.4 ML SYRINGE SUBCUT SCH (09:00)
[2018-11-15] MEDS ORDERED: PANTOPRAZOLE 40 MG TABLET PO SCH (09:00)
[2018-11-15] MEDS ORDERED: TRANEXAMIC ACID 1,000 MG/10 ML VIAL ONE (09:51)
[2018-11-15] MEDS ORDERED: MAGNESIUM HYDROXIDE SUSP 30 ML UDCUP PO PRN (10:38)
[2018-11-15] MEDS ORDERED: diphenhydrAMINE CAP 25 MG CAPSULE PO PRN (10:38)
[2018-11-15] MEDS ORDERED: LACTULOSE 20 GM/30 ML UDCUP PO PRN (10:38)
[2018-11-15] MEDS ORDERED: BISACODYL 10 MG SUPP RECTAL PRN (10:38)
[2018-11-15] MEDS ORDERED: PROMETHAZINE 25 MG/1 ML VIAL IM PRN (10:38)
[2018-11-15] MEDS ORDERED: PHENYLEPHRINE 1 MG/10 ML SYRINGE IV ONE (11:19)
[2018-11-15] MEDS ORDERED: SEVOFLURANE 1 UNIT/15 MINUTE INH ONE (11:19)
[2018-11-15] MEDS ORDERED: fentaNYL 100 MCG/2 ML VIAL ONE (11:19)
[2018-11-15] MEDS ORDERED: ACETAMINOPHEN 1,000 MG/100 ML VIAL IV ONE (11:19)
[2018-11-15] MEDS ORDERED: GLYCOPYRROLATE 0.4 MG/2 ML VIAL ONE (11:19)
[2018-11-15] MEDS ORDERED: PROPOFOL 200 MG/20 ML VIAL IV ONE (11:19)
[2018-11-15] MEDS ORDERED: ROCURONIUM 100 MG/10 ML VIAL IV ONE (11:20)
[2018-11-15] MEDS ORDERED: LACTATED RINGERS 1,000 ML IV ONE (11:20)
[2018-11-15] MEDS ORDERED: NEOSTIGMINE 10 MG/10 ML VIAL ONE (11:20)
[2018-11-15] MEDS ORDERED: ONDANSETRON 4 MG/2 ML VIAL IV PRN (11:20)
[2018-11-15] MEDS ORDERED: HYDROmorphone 2 MG/1 ML VIAL ONE (11:22)
[2018-11-15] MEDS: HYDROmorphone 2 MG/1 ML VIAL IV PRN ×2 (11:25→11:35)
[2018-11-15] MEDS: LACTATED RINGERS 1,000 ML IV SCH ×2 (12:19→19:27)
[2018-11-15] MEDS: MORPHINE 4 MG/1 ML VIAL IV PRN ×3 (13:48→20:39)
[2018-11-15] MEDS: ceFAZolin 1,000 MG in SYRINGE 1 EACH IV SCH (17:24)
[2018-11-15] MEDS: rOPINIRole 0.25 MG TABLET PO SCH (20:40)
[2018-11-15] MEDS: clonazePAM 0.5 MG TABLET PO SCH (20:40)
[2018-11-15] MEDS: ESCITALOPRAM 10 MG TABLET PO SCH (20:40)
[2018-11-15] MEDS: PREGABALIN 25 MG CAPSULE PO SCH (20:41)
[2018-11-15] MEDS: FONDAPARINUX 2.5 MG/0.5 ML SYRINGE SUBCUT SCH (20:41)
[2018-11-16] MEDS: ceFAZolin 1,000 MG in SYRINGE 1 EACH IV SCH (00:03)
[2018-11-16 06:50] LABS: Basophils % 0.2 % (0.0-0.8); Eosinophils # 0.3 10*3/uL (0.0-0.87); Eosinophils % 2.5 % (0.00-10.9); Hematocrit 33.6 VOL% (35.7-47.0); Hemoglobin 10.3 GM/DL (12.0-16.0); Immature Granulocytes % 0.7 %; Immature Granulocytes Absolute 0.09 #; Lymphocytes # 0.6 10*3/uL (1.4-4.0); Lymphocytes % 4.5 % (21.3-54.2); Mean Corpuscular HGB Conc 30.7 GM/DL (32-36); Mean Corpuscular Hemoglobin 30 PG (27-34); Mean Corpuscular Volume 97.4 FL (87-102); Monocytes # 1.1 10*3/uL (0.11-0.8); Monocytes % 8.4 % (1.7-12.7); Neutrophils # 10.8 10*3/uL (1.4-7.4); Neutrophils % 83.7 % (38.7-73.9); Platelet Count 135 T/CUMM (130-400); Red Blood Count 3.45 MC/CUMM (3.8-5.5); Red Cell Distribution Width 13.3 % (9.3-17.3); White Blood Count 12.9 T/CUMM (4-12)
[2018-11-16 06:59] LABS: Calcium 8.2 MG/DL (8.5-10.1); Osmolality,Calculated 284.1 MOS/KG (273-304); Potassium 3.9 MMOL/L (3.5-5.1)
[2018-11-16 07:24] LABS: Band Neutrophils 6 % (0-10); Eosinophils 3 % (0-10); Hypochromasia 2+; Lymphocytes 4 % (20-55); Ovalocytes 1+; Platelet Estimate Decreased; Segmented Neutrophils 84 % (50-85); Total Cells Counted 100
[2018-11-16] MEDS: MORPHINE 4 MG/1 ML VIAL IV PRN (08:33)
[2018-11-16] MEDS: CARVEDILOL 6.25 MG TABLET PO SCH ×2 (10:57→21:30)
[2018-11-16] MEDS: FUROSEMIDE 40 MG TABLET PO SCH (10:57)
[2018-11-16] MEDS: PREGABALIN 25 MG CAPSULE PO SCH ×2 (11:00→21:30)
[2018-11-16] MEDS: LACTATED RINGERS 1,000 ML IV SCH (15:43)
[2018-11-16] MEDS: ESCITALOPRAM 10 MG TABLET PO SCH (19:58)
[2018-11-16] MEDS: rOPINIRole 0.25 MG TABLET PO SCH (21:30)
[2018-11-16] MEDS: clonazePAM 0.5 MG TABLET PO SCH (21:30)
[2018-11-16] MEDS: FONDAPARINUX 2.5 MG/0.5 ML SYRINGE SUBCUT SCH (21:30)
[2018-11-17] MEDS: LACTATED RINGERS 1,000 ML IV SCH (05:36)
[2018-11-17 05:54] LABS: Basophils % 0.2 % (0.0-0.8); Eosinophils # 0.2 10*3/uL (0.0-0.87); Eosinophils % 2.6 % (0.00-10.9); Hematocrit 27.4 VOL% (35.7-47.0); Hemoglobin 8.4 GM/DL (12.0-16.0); Immature Granulocytes % 0.5 %; Immature Granulocytes Absolute 0.05 #; Lymphocytes # 0.7 10*3/uL (1.4-4.0); Lymphocytes % 7.7 % (21.3-54.2); Mean Corpuscular HGB Conc 30.7 GM/DL (32-36); Mean Corpuscular Hemoglobin 30 PG (27-34); Mean Corpuscular Volume 98.2 FL (87-102); Mean Platelet Volume 12.5 FL (9.6-12.0); Monocytes # 1.1 10*3/uL (0.11-0.8); Monocytes % 11.8 % (1.7-12.7); Neutrophils # 7.2 10*3/uL (1.4-7.4); Neutrophils % 77.2 % (38.7-73.9); Platelet Count 113 T/CUMM (130-400); Red Blood Count 2.79 MC/CUMM (3.8-5.5); Red Cell Distribution Width 13.4 % (9.3-17.3); White Blood Count 9.3 T/CUMM (4-12)
[2018-11-17] MEDS: FUROSEMIDE 40 MG TABLET PO SCH (10:53)
[2018-11-17] MEDS: CARVEDILOL 6.25 MG TABLET PO SCH ×2 (10:54→21:12)
[2018-11-17] MEDS: PREGABALIN 25 MG CAPSULE PO SCH ×2 (10:54→21:12)
[2018-11-17] MEDS: DOCUSATE SODIUM 100 MG CAPSULE PO PRN (10:54)
[2018-11-17] MEDS ORDERED: CALCIUM CARBONATE CHEW 500 MG TABLET PO PRN (14:35)
[2018-11-17] MEDS: rOPINIRole 0.25 MG TABLET PO SCH (21:12)
[2018-11-17] MEDS: clonazePAM 0.5 MG TABLET PO SCH (21:12)
[2018-11-17] MEDS: ESCITALOPRAM 10 MG TABLET PO SCH (21:12)
[2018-11-18 05:26] LABS: Basophils % 0.1 % (0.0-0.8); Eosinophils # 0.3 10*3/uL (0.0-0.87); Eosinophils % 3.4 % (0.00-10.9); Hematocrit 25.5 VOL% (35.7-47.0); Hemoglobin 7.9 GM/DL (12.0-16.0); Immature Granulocytes % 0.4 %; Immature Granulocytes Absolute 0.03 #; Lymphocytes # 0.6 10*3/uL (1.4-4.0); Lymphocytes % 7.8 % (21.3-54.2); Mean Corpuscular Hemoglobin 30 PG (27-34); Mean Corpuscular Volume 97.7 FL (87-102); Mean Platelet Volume 12.9 FL (9.6-12.0); Monocytes # 0.8 10*3/uL (0.11-0.8); Monocytes % 11.3 % (1.7-12.7); Neutrophils # 5.7 10*3/uL (1.4-7.4); Platelet Count 115 T/CUMM (130-400); Red Blood Count 2.61 MC/CUMM (3.8-5.5); Red Cell Distribution Width 13.3 % (9.3-17.3); White Blood Count 7.3 T/CUMM (4-12)
[2018-11-18] MEDS: LACTATED RINGERS 1,000 ML IV SCH (05:38)
[2018-11-18] MEDS ORDERED: SODIUM CHLORIDE 0.9% 1,000 ML IV PRN (07:22)
[2018-11-18] MEDS: CARVEDILOL 6.25 MG TABLET PO SCH ×2 (09:27→21:09)
[2018-11-18] MEDS: PREGABALIN 25 MG CAPSULE PO SCH ×2 (09:27→21:09)
[2018-11-18] MEDS: FUROSEMIDE 40 MG TABLET PO SCH (09:27)
[2018-11-18 18:33] LABS: Hematocrit 30.5 VOL% (35.7-47.0)
[2018-11-18 18:38] LABS: Hemoglobin 9.7 GM/DL (12.0-16.0)
[2018-11-18] MEDS: ESCITALOPRAM 10 MG TABLET PO SCH (19:16)
[2018-11-18] MEDS: rOPINIRole 0.25 MG TABLET PO SCH (21:09)
[2018-11-18] MEDS: clonazePAM 0.5 MG TABLET PO SCH (21:09)
[2018-11-19 05:18] LABS: Basophils % 0.3 % (0.0-0.8); Eosinophils # 0.4 10*3/uL (0.0-0.87); Eosinophils % 6.7 % (0.00-10.9); Hemoglobin 9.7 GM/DL (12.0-16.0); Immature Granulocytes % 0.5 %; Immature Granulocytes Absolute 0.03 #; Lymphocytes # 0.8 10*3/uL (1.4-4.0); Lymphocytes % 13.9 % (21.3-54.2); Mean Corpuscular HGB Conc 31.3 GM/DL (32-36); Mean Corpuscular Hemoglobin 30 PG (27-34); Mean Corpuscular Volume 95.1 FL (87-102); Mean Platelet Volume 12.8 FL (9.6-12.0); Monocytes # 0.9 10*3/uL (0.11-0.8); Neutrophils # 3.7 10*3/uL (1.4-7.4); Neutrophils % 62.6 % (38.7-73.9); Platelet Count 124 T/CUMM (130-400); Red Blood Count 3.26 MC/CUMM (3.8-5.5); Red Cell Distribution Width 15.2 % (9.3-17.3); White Blood Count 5.8 T/CUMM (4-12)
[2018-11-19] MEDS: LACTATED RINGERS 1,000 ML IV SCH (05:44)
[2018-11-19 07:53] LABS: Anisocytosis 1+; Band Neutrophils 6 % (0-10); Eosinophils 10 % (0-10); Lymphocytes 13 % (20-55); Platelet Estimate Adequate; Segmented Neutrophils 60 % (50-85); Total Cells Counted 100
[2018-11-19 07:54] LABS: Giant Platelets Few
[2018-11-19] MEDS: CARVEDILOL 6.25 MG TABLET PO SCH ×2 (09:13→21:13)
[2018-11-19] MEDS: FUROSEMIDE 40 MG TABLET PO SCH (09:13)
[2018-11-19] MEDS: PREGABALIN 25 MG CAPSULE PO SCH ×2 (09:14→21:13)
[2018-11-19] MEDS: MORPHINE 4 MG/1 ML VIAL IV PRN ×2 (11:15→18:11)
[2018-11-19] MEDS: FONDAPARINUX 2.5 MG/0.5 ML SYRINGE SUBCUT SCH (11:49)
[2018-11-19] MEDS: ESCITALOPRAM 10 MG TABLET PO SCH (19:07)
[2018-11-19] MEDS: rOPINIRole 0.25 MG TABLET PO SCH (21:13)
[2018-11-19] MEDS: clonazePAM 0.5 MG TABLET PO SCH (21:13)
[2018-11-20] MEDS: LACTATED RINGERS 1,000 ML IV SCH ×2 (02:00→18:26)
[2018-11-20] MEDS: FONDAPARINUX 2.5 MG/0.5 ML SYRINGE SUBCUT SCH (09:33)
[2018-11-20] MEDS: FUROSEMIDE 40 MG TABLET PO SCH (09:33)
[2018-11-20] MEDS: CARVEDILOL 6.25 MG TABLET PO SCH ×2 (09:33→21:28)
[2018-11-20] MEDS: PREGABALIN 25 MG CAPSULE PO SCH ×2 (09:33→21:28)
[2018-11-20] MEDS ORDERED: TUBERCULIN SKIN TEST 0.1 ML SYRINGE INTRADERM ONE (11:46)
[2018-11-20] MEDS: ESCITALOPRAM 10 MG TABLET PO SCH (19:08)
[2018-11-20] MEDS: clonazePAM 0.5 MG TABLET PO SCH (21:28)
[2018-11-20] MEDS: DOCUSATE SODIUM 100 MG CAPSULE PO PRN (21:28)
[2018-11-20] MEDS: rOPINIRole 0.25 MG TABLET PO SCH (21:28)
[2018-11-21] MEDS ORDERED: FUROSEMIDE 20 MG TABLET ONE (08:49)
[2018-11-21] MEDS: CARVEDILOL 6.25 MG TABLET PO SCH (10:11)
[2018-11-21] MEDS: FONDAPARINUX 2.5 MG/0.5 ML SYRINGE SUBCUT SCH (10:11)
[2018-11-21] MEDS: FUROSEMIDE 40 MG TABLET PO SCH (10:11)
[2018-11-21] MEDS: PREGABALIN 25 MG CAPSULE PO SCH (10:11)
[2018-11-21 11:32] VITALS: BP 141/61
== END 2018-11-21 15:35 | DRG 470 ==
LOC: EDBD → EDUNIT# → N.ED 19:07 → SUATTDRO 21:36 → N.EDINP 21:36 → N.3E 22:27
PROVIDERS: ADMIT Internal Medicine Cardiovascular Disease; ATTEND Internal Medicine